=== PATIENT | female | born 1970 | race Caucasian/White ===

== ENCOUNTER 2016-12-09 05:09 | Emergency (ER) | payer MEDICAID ==
[2016-12-09 05:11] VITALS: BMI 23.0
[2016-12-09] MEDS ORDERED: Albuterol/Ipratropium Neb 3 ML NEB NEB ONE (05:26)
[2016-12-09] MEDS ORDERED: OXYCODONE HCL 5 MG TABLET PO ONE (05:26)
[2016-12-09] MEDS ORDERED: PREDNISONE 20 MG TAB PO ONE (05:26)
--- NOTE | 2016-12-09 05:28 | EDPRACDOC ---
- General Information Chief Complaint: Dyspnea/Resp distress Stated Complaint: COUGH/ DIFFICULTY BREATHING Time Seen by Provider: 12/09/16 05:23 Home Medications: Home Medications Azithromycin [Zithromax] 0 mg PO DAILY #6 tablet 10/19/15 Prednisone [Deltasone] 20 mg PO BID #10 tablet 10/19/15 Albuterol Sulfate MDI [Proventil HFA] 2 puff INH Q4 PRN #1 inhaler 12/09/16 Levofloxacin [Levaquin] 750 mg PO DAILY #10 tab 12/09/16 Prednisone [Sterapred 10 mg/6 day pack] 21 tab PO DIR #1 pack 12/09/16 Allergies/Adverse Reactions: Allergies Allergy/AdvReac Type Severity Reaction Status Date / Time hydrocodone Allergy See Verified 10/19/15 20:57 Comments - History of Present Illness HPI: PATIENT HAS A HX OF COPD. COUGH WITH CONGESTION OVER LAST FEW DAYS. NO FEVER. COUGH PRODUCTIVE OF YELLOW SPUTUM. USES INHALERS AT HOME. NO NEBULIZERS Symptoms: Reports: Cough, Nasal Symptoms Recent Medications: Reports: None Relevant History Of: Reports: COPD Shortness of Breath: Mild Cough Frequency: Intermittent Cough Description: Reports: Productive Rhinorrhea: Reports: Clear Ear Symptoms: Reports: None Associated Signs and Symptoms: Reports: Cough, Nasal Symptoms ED Past Medical History - History Reviewed Yes Nurses notes reviewed and agree except as marked Travel Outside of [place] in the Last 3 Months?: No - Patient Medical History Cardiac History: Reports: Hypertension Respiratory History: Reports: COPD Psychological History: Denies: Substance Use Disorder Surgical History: Reports: Hysterectomy - Social Medical History Smoking Status: Heavy tobacco smoker (5 or more cigarettes/day or daily pipe/ cigar) Social History: Denies: Substance Use Disorder ETOH: None Substance Abuse: None Lives With: Family Lives In: Home EDM Review of Systems - Review of Systems ROS Negative Except as Marked: Yes All systems reviewed and were negative except as marked Constitutional: Fatigue. negative: Chills, Fever, Loss of Appetite, Weakness Eyes: No Symptoms Reported. negative: Redness, Blurred Vision, Double Vision, Discharge, Pain, Light Sensitive, Photophobia Ears: No Symptoms Reported. negative: Pain, Hearing Loss, Drainage, Ear Pulling Throat: No Symptoms Reported. negative: Pain, Swelling Nose: No Symptoms Reported. negative: Congestion, Bleeding, Discharge, Injection, Swelling, Deformity, Ecchymosis, Tender, Abrasion, Laceration Mouth: No Symptoms Reported. negative: Pain, Drooling Respiratory: Cough. negative: Barky Cough, Brassy Cough, Hemoptysis, Shortness of Breath, Wheezing Cardiovascular: No Symptoms Reported. negative: Chest Pain, Palpitations, Syncope, Edema, Orthopnea, PND, Skin Mottling, Cyanosis Gastrointestinal: No Symptoms Reported. negative: Pain, Constipation, Nausea, Vomiting, Diarrhea, Melena, Formula Intolerance Genitourinary: No Symptoms Reported. negative: Dysuria, Hematuria, Frequency, Discharge, Bleeding, Testicular Pain, Neurological: No Symptoms Reported. negative: Headache, Dizziness, Seizure, Numbness, Weakness, Speech Difficulty, Gait Difficulty Musculoskeletal: No Symptoms Reported. negative: Neck, Chestwall, Ribs, Back, Shoulder, Arm, Elbow, Forearm, Wrist, Hand, Pelvis, Hip, Femur, Knee, Leg, Ankle , Foot Integumentary: No Symptoms Reported. negative: Itching, Rash, Bruising, Wound Allergic/Immunologic: No Symptoms Reported. negative: Hives, Itching Hematologic: No Symptoms Reported. negative: Lymphadenopathy, Easy Bruising, Easy Bleeding Endocrine: No Symptoms Reported. negative: Weight Gain, Weight Loss Psychiatric: No Symptoms Reported. negative: Anxiety, Depression, Hallucinations, Insomnia, Suicidal - Physical Exam Constitutional: Alert (Awake), Distress (MILD) Oriented to: Time, Person, Place Last recorded Vital Signs: Oxygen Pulse Oxygen Saturation O2 Device Oxygen Flow Rate Fraction of Inspired Oxygen ( FIO2) - HEENT Head: Normal ( normocephalic) Eye Exam: Normal (PERRL, EOMI, Sclera white) Oropharynx: Normal (Pharynx:Moist without exudate,Gums-no swelling) Tympanic Membrane: Normal ENT EAC: Normal TMJ: Normal Nose: No Symptoms Reported (septum midline) Neck: Normal (FROM, trachea at midline) - Respiratory/Cardiovascular Respiratory: Rhonchi Cardiovascular: Tachycardia - GI Auscultation: Normal (NABS) Palpation: Normal (Soft,No rebound or guarding, non distended) Tenderness: Non tender Fisher's Sign: Negative - Musculoskeletal Back: Normal (Non-Tender) Extremities: Normal (Normal tone, Pulses 2+ No cyanosis or edema, FROM) - Integumentary Skin: Normal, Warm, Dry Lymphatics: Normal (no adenopathy) - Neurologic Memory Impaired: Normal Motor Function: Normal (Normal tone, Pulses 2+ No cyanosis or edema, FROM) Cranial Nerve: Normal (CN II-X11 intact sensation, strength 5/5) Cerebellar: Normal Mood Description: Normal Perception: Normal Decision Time to Discharge: 05:57 - Departure Yes I personally saw and evaluated the patient. Disposition: Home Condition: Good Final Diagnosis: Acute exacerbation of chronic obstructive airways disease URI (upper respiratory infection) Qualifiers: URI type: unspecified URI Qualified Code(s): J06.9 - Acute upper respiratory infection, unspecified Instructions: COPD (Chronic Obstructive Pulmonary Disease) (ED), Upper Respiratory Infection (ED) Education/Counseling Given To: Patient Education/Counseling Given Regarding: Diagnosis, Treatment, Prognosis, Follow Up Referrals: Dorothy Renteria NP [Ambulatory] - One Week Prescriptions: Albuterol Sulfate MDI [Proventil HFA] 2 puff INH Q4 PRN #1 inhaler PRN Reason: Dyspnea Levofloxacin [Levaquin] 750 mg PO DAILY #10 tab Prednisone [Sterapred 10 mg/6 day pack] 21 tab PO DIR #1 pack
[2016-12-09 05:37] VITALS: BP 120/76; PULSE 84; TEMP 97.9
--- NOTE | 2016-12-09 05:49 | DIRPT ---
CLINICAL DATA: 46-year-old female with cough EXAM: CHEST 2 VIEW COMPARISON: Radiograph dated 10/19/2015 FINDINGS: Two views of the chest do not demonstrate focal consolidation. There is no pleural effusion or pneumothorax. Minimal bibasilar atelectatic changes. The cardiac silhouette is within normal limits. No acute osseous pathology. IMPRESSION: No active cardiopulmonary disease. Electronically Signed By: Nate Gresham M.D. On: 12/09/2016 05:46
== END 2016-12-09 06:30 | disposition home or self-care (01) ==
LOC: ED 05:09
DX: J44.1 Chronic obstructive pulmonary disease with (acute) exacerbation (principal); J06.9 Acute upper respiratory infection, unspecified
CPT/HCPCS: 71020; 94640; 99284; J3490; J7620